=== PATIENT | male | born 1970 | race Caucasian/White ===

== ENCOUNTER 2016-11-16 21:32 | Emergency (ER) | payer OTHER ==
[~2016-11-16] VITALS: Ht 172.7 cm; Wt 88.4 kg
[~2016-11-16 21:32] MED LIST: ACET-1311 PO; ALBUAER2 INH; ATACAND PO; BECL0.3A INH; EPP3/2 IM; NITR0.4S UT; PARO1TAB27 PO
[2016-11-16 21:35] VITALS: TEMP 36.7; Ht 172.7 cm; Wt 88.4 kg
[2016-11-16] MEDS ORDERED: KETOROLAC TROMETHAMINE 30 MG/ML VIAL IV STA (21:38)
[2016-11-16] MEDS ORDERED: ONDANSETRON INJ 2 MG/ML 2 ML VIAL IV STA (21:38)
[2016-11-16] MEDS ORDERED: SODIUM CHLORIDE 0.9% 1000ML 1,000 ML IV STA ×3 (21:38→22:52)
[2016-11-16] MEDS ORDERED: MoRPHine SULFATE 4 MG/ML 1 ML CARP\\VIAL IV STA (21:38)
[2016-11-16] MEDS ORDERED: PRLSR20 PO (21:48)
[2016-11-16 21:57] LABS: BASO % 0.2 %; BASO ABS # 0.03 K/uL (0-0.2); COMPLETE YES; EOS % 0.1 %; HEMATOCRIT 43.5 % (42-52); IG% 0.4 %; LYMPH % 11.6 %; LYMPH ABS # 1.53 K/uL (1.2-3.4); MEAN CELL VOLUME 93.1 fL (80-100); MEAN CORPUSCULAR HGB CONC 36.6 g/dl (32-36); MEAN PLATELET VOLUME 9.6 fL (7.4-10.4); MONO % 7.8 %; NEUT % 79.9 %; PLATELET COUNT 293 K/uL (130-400); RED BLOOD COUNT 4.67 M/uL (4.7-6.1); WHITE BLOOD COUNT 13.19 K/uL (4.8-10.8)
[2016-11-16 22:02] LABS: URINE APPEARANCE CLEAR (CLEAR); URINE BILIRUBIN NEG (NEG); URINE COLOR YELLOW; URINE NITRITE NEG (NEG); URINE SPECIFIC GRAVITY 1.027 (1.000-1.030); UROBILINOGEN NEG (NEG); ZZUR CULT IF INDIC CLEAN CATCH NO
[2016-11-16 22:04] LABS: MANUAL MICROSCOPIC REQUIRED? NO; REVIEW REQ? NO
[2016-11-16 22:13] LABS: BUN/CREATININE RATIO 23.1 (10-20); CREATININE 1.8 mg/dl (0.60-1.40); POTASSIUM 4.3 mmol/L (3.5-5.1)
[2016-11-16 22:25] LABS: CALCIUM 9.3 mg/dl (8.5-10.1)
--- NOTE | 2016-11-16 22:25 | DIAGNOSTIC IMAGING REPORT ---
RENAL ULTRASOUND CLINICAL HISTORY: Flank pain. Evaluate for stone. COMPARISON STUDY: CT of the abdomen and pelvis February 21, 2015 and right upper quadrant ultrasound October 26, 2015. TECHNIQUE: Sonography of the kidneys and the urinary bladder was performed. FINDINGS: There is mild right collecting system dilatation. The right kidney measures 10.5 x 5.6 x 7.2 cm and the left measures 11 x 6.9 x 6.6 cm. No shadowing calculi were identified. Neither ureteral jet was identified. IMPRESSION: Mild right collecting system dilatation. Electronically signed by: Per Perez M.D. 11/16/2016 10:23 PM Dictated Date/Time: 11/16/2016 10:20 PM
[2016-11-16] MEDS ORDERED: OXYC1TAB3 PO ×2 (22:43→23:43)
[2016-11-16] MEDS ORDERED: VNTHFA/IN INH (22:43)
[2016-11-16] MEDS ORDERED: LISI-461 PO (22:44)
[2016-11-16] MEDS ORDERED: HEART MED PO (22:48)
--- NOTE | 2016-11-16 22:52 | DIAGNOSTIC IMAGING REPORT ---
CT OF THE ABDOMEN AND PELVIS WITHOUT CONTRAST CLINICAL HISTORY: Flank pain. COMPARISON STUDY: CT of the abdomen and pelvis February 21, 2015 and renal ultrasound performed earlier today. TECHNIQUE: Axial images of the abdomen and pelvis were obtained without IV contrast. Images were reviewed in the axial, sagittal, and coronal planes. FINDINGS: A 4 mm distal right ureteral calculus results in mild right hydroureteronephrosis. There is minimal perinephric and periureteral infiltration. No additional urinary calculi are identified. Evaluation of the remainder of the abdomen and pelvis is suboptimal on this unenhanced exam. The liver, spleen, adrenal glands and pancreas are unremarkable. There is no evidence for a bowel obstruction. The appendix is normal. There is no lymphadenopathy or ascites. Skeletal structures are unremarkable. An ingested tablet is noted within the small bowel. IMPRESSION: 4 mm distal right ureteral calculus with resultant mild right hydroureteronephrosis. Electronically signed by: Per Perez M.D. 11/16/2016 10:51 PM Dictated Date/Time: 11/16/2016 10:45 PM
--- NOTE | 2016-11-16 23:40 | EMERGENCY ROOM VISIT NOTE ---
History First contact with patient: 21:36 Chief Complaint: KIDNEY STONE Stated Complaint: KIDNEY STONE History of Present Illness The patient is a 46 year old male who presents to the Emergency Room with complaints of flank pain that radiates to his groin today described as severe, ranging in severity 9 out of 10. Patient had episode last week. History kidney stones. He does not have a urologist. Patient complains of nausea and vomiting secondary to the pain. Patient denies chest pain, dyspnea, dysuria, penile pain, testicular pain, diarrhea, fever, chills. Review of Systems See HPI for pertinent positives & negatives. A total of 10 systems reviewed and were otherwise negative. Past Medical/Surgical History Medical Problems: (1) Asthma (2) Heart disease (3) Hypertension (4) Kidney stone Family History Heart disease Social History Smoking Status: Never Smoker Smokeless Tobacco Use: No Drug Use: none Marital Status: Housing Status: lives with family Occupation Status: employed Current/Historical Medications Scheduled Epinephrine (Epipen), 0.3 MG IM UD Lisinopril (Zestril), 1 TAB PO DAILY Nitroglycerin (Nitrostat), 0.4 MG UT PRN [Heart Med], 1 TAB PO DAILY Scheduled PRN Albuterol Hfa (Ventolin Hfa), 2 PUFFS INH Q6H PRN for SOB/Wheezing Omeprazole (Prilosec), 20 MG PO DAILY PRN for ACID REFLUX Oxycodone Ir (Roxicodone Ir), 5 MG PO PRN UD PRN for Pain Allergies Uncoded Allergies: NKDA (Allergy, Mild, 01/06/08) Physical Exam Vital Signs Date Time Temp Pulse Resp B/P Pulse Ox O2 Delivery O2 Flow Rate FiO2 11/16/16 22:25 102 15 139/76 92 Room Air 11/16/16 21:35 36.7 107 18 166/92 97 Room Air Physical Exam VITALS: Vitals are noted on the nurse's note and reviewed by myself. Vital signs hypertensive GENERAL: Pleasant male who appears in pain, in no acute distress, nondiaphoretic , well-developed well-nourished. SKIN: The skin was without rashes, erythema, edema, or bruising. There is no tenting of the skin. Capillary reflex less than 2 seconds. HEAD: Normocephalic atraumatic. EARS: External auditory canals clear, tympanic membranes pearly morrow without erythema or effusion bilaterally. EYES: Pupils equal round and reactive to light and accommodation. Conjunctivae without injection, sclerae without icterus. Extraocular movements intact. NOSE: Patent, turbinates without inflammation or discharge. MOUTH: Mucous membranes moist. Pharynx without erythema or exudate. Uvula midline. Airway patent. Tongue does not deviate. NECK: Supple without nuchal rigidity. No lymphadenopathy. No thyromegaly. Cervical spine is nontender. No JVD. HEART: Regular rate and rhythm without murmurs gallops or rubs. LUNGS: Clear to auscultation bilaterally without wheezes, rales or rhonchi. No dullness to percussion. No retractions or accessory muscle use. ABDOMEN: Positive bowel sounds x 4. Normal tympanic percussion. Soft, nontender, without masses or organomegaly. Poe sign negative. No guarding or rebound tenderness. No CVA tenderness MUSCULOSKELETAL: No muscle atrophy, erythema, or edema noted. NEURO: Patient was alert and oriented to person place and time. Normal sensation to light and sharp touch. No focal neurological deficits. Medical Decision & Procedures Laboratory Results 11/16/16 21:46 Red Blood Count 4.67, Mean Corpuscular Volume 93.1, Mean Corpuscular Hemoglobin 34.0, Mean Corpuscular Hemoglobin Concent 36.6, Mean Platelet Volume 9.6, Neutrophils (%) (Auto) 79.9, Lymphocytes (%) (Auto) 11.6, Monocytes (%) (Auto) 7.8, Eosinophils (%) (Auto) 0.1, Basophils (%) (Auto) 0.2, Neutrophils # (Auto) 10.54, Lymphocytes # (Auto) 1.53, Monocytes # (Auto) 1.03, Eosinophils # (Auto) 0.01, Basophils # (Auto) 0.03 11/16/16 21:46 Test 11/16/16 21:40 11/16/16 21:46 Urine Color YELLOW Urine Appearance CLEAR (CLEAR) Urine pH 5.0 (4.5-7.5) Urine Specific [place] 1.027 (1.000-1.030) Urine Protein TRACE (NEG) Urine Glucose (UA) NEG (NEG) Urine Ketones 3+ (NEG) Urine Occult Blood 3+ (NEG) Urine Nitrite NEG (NEG) Urine Bilirubin NEG (NEG) Urine Urobilinogen NEG (NEG) Urine Leukocyte Esterase TRACE (NEG) Urine WBC (Auto) 1-5 /hpf (0-5) Urine RBC (Auto) >30 /hpf (0-4) Urine Hyaline Casts (Auto) 1-5 /lpf (0-5) Urine Epithelial Cells (Auto) 10-20 /lpf (0-5) Urine Bacteria (Auto) NEG (NEG) White Blood Count 13.19 K/uL (4.8-10.8) Red Blood Count 4.67 M/uL (4.7-6.1) Hemoglobin 15.9 g/dL (14.0-18.0) Hematocrit 43.5 % (42-52) Mean Corpuscular Volume 93.1 fL (80-100) Mean Corpuscular Hemoglobin 34.0 pg (25-34) Mean Corpuscular Hemoglobin Concent 36.6 g/dl (32-36) Platelet Count 293 K/uL (130-400) Mean Platelet Volume 9.6 fL (7.4-10.4) Neutrophils (%) (Auto) 79.9 % Lymphocytes (%) (Auto) 11.6 % Monocytes (%) (Auto) 7.8 % Eosinophils (%) (Auto) 0.1 % Basophils (%) (Auto) 0.2 % Neutrophils # (Auto) 10.54 K/uL (1.4-6.5) Lymphocytes # (Auto) 1.53 K/uL (1.2-3.4) Monocytes # (Auto) 1.03 K/uL (0.11-0.59) Eosinophils # (Auto) 0.01 K/uL (0-0.5) Basophils # (Auto) 0.03 K/uL (0-0.2) RDW Standard Deviation 43.4 fL (36.4-46.3) RDW Coefficient of Variation 12.8 % (11.5-14.5) Immature Granulocyte % (Auto) 0.4 % Immature Granulocyte # (Auto) 0.05 K/uL (0.00-0.02) Anion Gap 13.0 mmol/L (3-11) Est Creatinine Clear Calc Drug Dose 56.0 ml/min Estimated GFR () 51.5 Estimated GFR (Non- 44.5 BUN/Creatinine Ratio 23.1 (10-20) Calcium Level 9.3 mg/dl (8.5-10.1) Medications Administered Medications (Trade) Dose Ordered Sig/Imelda Route Start Time Stop Time Status Last Admin Dose Admin Morphine Sulfate (MoRPHine SULFATE INJ) 4 mg NOW STAT IV 11/16/16 21:38 11/16/16 21:41 DC 11/16/16 21:49 4 MG Ondansetron HCl (Zofran Inj) 4 mg NOW STAT IV 11/16/16 21:38 11/16/16 21:41 DC 11/16/16 21:49 4 MG Ketorolac Tromethamine 30 mg 30 mg NOW STAT IV 11/16/16 21:38 11/16/16 21:41 DC 11/16/16 21:49 30 MG Sodium Chloride 1,000 ml @ 125 mls/hr Q8H STAT IV 11/16/16 21:38 11/17/16 05:37 11/16/16 21:50 125 MLS/HR Sodium Chloride (Nss 1000ml) 1,000 ml @ 999 mls/hr Q1H1M STAT IV 11/16/16 22:06 11/16/16 23:06 DC 11/16/16 22:25 999 MLS/HR ED Course Prior records/ancillary studies reviewed. Triage Nursing notes reviewed. The patient's history was concerning for flank pain. Differential diagnosis: Etiologies such as renal colic, appendicitis, diverticulitis, mesenteric ischemia, aortic pathology, infections, inflammatory bowel disease, PUD, biliary pathology, UTI, as well as others were entertained. Physical examination findings: As above. ER treatment provided: Morphine, Toradol, Zofran, IV fluids, 2 L On reassessment the patient felt better. Diagnostic interpretation by me: The labs revealed elevated BUN and creatinine concerning for acute renal injury. Urinalysis revealed hematuria 3+ ketones. There was no sign of UTI. Imaging studies: CT of the abdomen and pelvis was reviewed from a year and half ago shows multiple stones in the kidneys. CT OF THE ABDOMEN AND PELVIS WITHOUT CONTRAST CLINICAL HISTORY: Flank pain. COMPARISON STUDY: CT of the abdomen and pelvis February 21, 2015 and renal ultrasound performed earlier today. TECHNIQUE: Axial images of the abdomen and pelvis were obtained without IV contrast. Images were reviewed in the axial, sagittal, and coronal planes. FINDINGS: A 4 mm distal right ureteral calculus results in mild right hydroureteronephrosis. There is minimal perinephric and periureteral infiltration. No additional urinary calculi are identified. Evaluation of the remainder of the abdomen and pelvis is suboptimal on this unenhanced exam. The liver, spleen, adrenal glands and pancreas are unremarkable. There is no evidence for a bowel obstruction. The appendix is normal. There is no lymphadenopathy or ascites. Skeletal structures are unremarkable. An ingested tablet is noted within the small bowel. IMPRESSION: 4 mm distal right ureteral calculus with resultant mild right hydroureteronephrosis. Electronically signed by: Per Perez M.D. It appears that the patient has isolated renal colic from a right sided stone. Patient's pain was under control. Patient is demanding to leave. He is tolerating fluids. He was advised to recheck his creatinine in a few days with the family care doctor and drink plenty of fluids as he is dehydrated as acute renal injury. He is well-appearing. No signs of UTI. He was advised to strain his urine to the stone passes and to follow-up with urology in a few days or here in the ER sooner for severe pain, vomiting, fevers, worsening signs or symptoms or as needed. By the evaluation outlined above emergent etiologies such as appendicitis, diverticulitis, mesenteric ischemia, aortic pathology, infections, inflammatory bowel disease, PUD, biliary pathology, UTI, as well as others were deemed relatively unlikely. The pt informed about the findings as listed above. All questions were answered and pleased with the treatment. Return instructions were outlined and the patient was discharged in stable condition. Outpatient prescription management: Oxy IR 5mg 1-2 po Q4 hrs prn Zofran Referral: The pt was referred to [facility] for follow up care regarding their stone. or The patient was referred back to their primary care physician for follow-up in 2 to 3 days for a recheck of the current condition. Case reviewed with my attending Medical Decision As above Impression Primary Impression: Acute kidney injury Additional Impression: Renal colic on right side Departure Information Dispostion Home / Self-Care Condition GOOD Referrals Jaydon Pavon M.D. (PCP) Patient Instructions My [facility] Additional Instructions DO NOT drive, drink alcohol, operate machinery, or perform dangerous activities today. You were given medications in the ER that can affect your ability to safely function or operate a vehicle. Your kidney function is elevated. You need to have this rechecked within the week. Increase your fluids as most likely this is from dehydration. Oxycodone Immediate Release (OxyIR) 5mg: Take 1-2 pills every four hours for pain. Avoid alcohol, operating machinery or dangerous equipment, working on ladders or roofs, DRIVING, or situations where being under the influence may be dangerous. It is recommended to use an [id number] stool softener such as Colace, 100mg twice daily while taking this medication to avoid constipation. Zofran 4 mg: Take one every six hours as needed for nausea. Avoid alcohol, operating machinery or dangerous equipment, working on ladders or roofs, DRIVING , or situations where being under the influence may be dangerous. Acetaminophen(Tylenol) may be used for fever or pain. Use 1000mg every six hours as needed. Avoid using more than 3000mg in a 24 hour period. This medication can be taken if you need to drive, work, or perform activities which may be dangerous when taking narcotic pain medication. Strain your urine and collect all the stones or debris for the urologists. Rest and avoid strenuous activity until your stone passes and symptoms resolve. Drink plenty of fluids. Continue current medications. Return to the ER for worsening abdominal or back pain, vomiting, fevers, passing out, or as needed. Follow up with [facility] tomorrow, [phone], to arrange a visit. Follow-up with the family care doctor in 2-3 days. Call for an appointment. Problem Qualifiers
[2016-11-16] MEDS ORDERED: OXYCODONE IR HOME PACK PO ONE (23:45)
[2016-11-16] MEDS ORDERED: ONDANSETRON HOME PACK 4MG OD TAB PO ONE (23:45)
[2016-11-17] VITALS: BP 133/77; PULSE 76; O2SAT 96
== END 2016-11-17 00:01 | disposition home or self-care (01) ==
LOC: C.EDB 21:33 → C.EDA 11-17 00:01
DX: N17.9 Acute kidney failure, unspecified (principal); N23 Unspecified renal colic; I10 Essential (primary) hypertension; I51.9 Heart disease, unspecified; J45.909 Unspecified asthma, uncomplicated; Z87.442 Personal history of urinary calculi; Z79.899 Other long term (current) drug therapy